=== PATIENT | female | born 1975 | race Caucasian/White ===

== ENCOUNTER 2018-09-21 17:12 | Emergency (ER) | payer SELFPAY ==
--- NOTE | 2018-09-21 18:16 | RAD REPORT ---
EXAM DESCRIPTION: RAD - Chest Pa And Lat (2 Views) - 09/21/2018 6:11 pm CLINICAL HISTORY: Congestion;Cough Chest pain. COMPARISON: Chest Single View dated 01/07/2017; CHEST SINGLE VIEW dated 03/23/2015 FINDINGS: The lungs are clear. The heart is normal in size. No displaced fractures. IMPRESSION: No acute or concerning finding suspected.
--- NOTE | 2018-09-21 18:38 | ER ---
Nurse's Notes [facility] Name: Chrissy Conway Age: 42 yrs Sex: Female : 1975 Arrival Date: 09/21/2018 Time: 17:14 Bed 18 Private MD: Diagnosis: Bronchitis, not specified as acute or chronic Presentation: 09/21 17:16 Presenting complaint: Patient states: i thought it was allergy last 3 weeks ago, then i hj had the cough and last night i could hardly breathe and now my throat hurts; reports fever and chills;. Transition of care:. Resp Distress? No respiratory distress is noted at this time. Onset of symptoms was September 21, 2018. Risk Assessment: Do you want to hurt yourself or someone else? Patient reports no desire to harm self or others. Initial Sepsis Screen: Does the patient meet any 2 criteria? No. Patient's initial sepsis screen is negative. Does the patient have a suspected source of infection? No. Patient's initial sepsis screen is negative. Care prior to arrival: None. 17:16 Method Of Arrival: Ambulatory 17:16 Acuity: PAULINO 4 Triage Assessment: 17:42 General: Appears in no apparent distress. comfortable, Behavior is cooperative, bp appropriate for age, anxious. Pain: Complains of pain in neck. EENT: Reports pain when swallowing. Neuro: Level of Consciousness is awake, alert, obeys commands, Oriented to person, place, time, situation, Appropriate for age. Cardiovascular: No deficits noted. Respiratory: Breath sounds are clear bilaterally. GI: No signs and/or symptoms were reported involving the gastrointestinal system. : No signs and/or symptoms were reported regarding the genitourinary system. Derm: No deficits noted. Musculoskeletal: Circulation, motion, and sensation intact. Range of motion: intact in all extremities. 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 - Social history:: Smoking status: Patient uses tobacco products, unknown amount. - Ebola Screening: : Patient negative for fever greater than or equal to 101.5 degrees Fahrenheit, and additional compatible Ebola Virus Disease symptoms Patient denies exposure to infectious person Patient denies travel to an Ebola-affected area in the 21 days before illness onset No symptoms or risks identified at this time. Screenin:45 Abuse screen: Denies threats or abuse. Denies injuries from another. Nutritional bp screening: No deficits noted. On. Tuberculosis screening: No symptoms or risk factors identified. Fall Risk None identified. Assessment: 17:44 General: SEE TRIAGE NOTE. Cardiovascular: No deficits noted. Cardiovascular: Rhythm is bp sinus rhythm. Cardiovascular: Chest pain is denied. Respiratory: Reports cough that is. Respiratory: Airway is patent Respiratory effort is even, unlabored, Respiratory pattern is regular, symmetrical. 18:21 Reassessment: ALL CURRENT ORDERS COMPLETED, RESULTS PENDING. bp 18:44 Reassessment: D/C ON HOLD FOR NEB TREATMENT. bp 19:10 Reassessment: PT D/C HOME AMBULATORY WITH FAMILY, DX WITH BRONCHITIS. Cardiovascular: bp Rhythm is sinus rhythm. Respiratory: Airway is patent. Vital Signs: 17:18 BP 130 / 85; Pulse 84; Resp 18; Temp 99.2(TE); Pulse Ox 98% on R/A; Weight 68.04 kg; hj Height 5 ft. 4 in. (162.56 cm); Pain 10/10; 18:22 BP 115 / 78; Pulse 74; Resp 16; Pulse Ox 99% ; bp 17:18 Body Mass Index 25.75 (68.04 kg, 162.56 cm) ED Course: 17:14 Patient arrived in ED. mr 17:17 Triage completed. hj 17:19 Arm band placed on left wrist. hj 17:42 Que Aragon, PEE is Primary Nurse. bp 17:44 Ale Leiva FNP-C is PHCP. kb 17:44 Deep Chambers MD is Attending Physician. kb 17:45 Patient has correct armband on for positive identification. Bed in low position. Call bp light in reach. Side rails up X2. 18:10 Chest Pa And Lat (2 Views) XRAY In Process Unspecified. EDMS 18:44 No provider procedures requiring assistance completed. Patient did not have IV access bp during this emergency room visit. Administered Medications: 18:30 Drug: predniSONE 40 mg Route: PO; bp 19:11 Follow up: Response: No adverse reaction bp 18:30 Drug: Albuterol 2.5 mg Route: Inhalation; bp 18:30 Drug: AtroVENT Aerosol 0.5 mg Route: Inhalation; bp Outcome: 18:37 Discharge ordered by . ronn 19:10 Discharged to home ambulatory, with family. bp 19:10 Condition: stable 19:10 Discharge instructions given to patient, Instructed on discharge instructions, follow up and referral plans. medication usage, Demonstrated understanding of instructions, follow-up care, medications, Prescriptions given X 3. 19:12 Patient left the ED. bp Signatures: Dispatcher [employer] EDMS Ale Leiva, ELZBIETA SILVER-Heidy Jimenez mr Prince Wren, RN RN Que Rojas RN RN bp Corrections: (The following items were deleted from the chart) 17:39 17:16 Acuity: PAULINO 3 hj bp 18:33 17:16 Acuity: PAULINO 4 bp hj
--- NOTE | 2018-09-21 18:38 | EDPHYS ---
Physician Documentation [facility] Name: Chrissy Conway Age: 42 yrs Sex: Female : 1975 Arrival Date: 09/21/2018 Time: 17:14 Bed 18 Private MD: ED Physician Deep Chambers HPI: 09/21 18:36 This 42 yrs old Female presents to ER via Ambulatory with complaints of kb Congestion, Back Pain, Fever. 18:36 The patient or guardian reports cough, that is intermittent, described as moderate, kb with no sputum, flu symptoms, low-grade fever, myalgias. Onset: The symptoms/episode began/occurred 3 week(s) ago. Severity of symptoms: At their worst the symptoms were moderate, in the emergency department the symptoms are unchanged. Modifying factors: The symptoms are alleviated by nothing, the symptoms are aggravated by nothing. Associated signs and symptoms: Pertinent positives: fever, rhinorrhea. The patient has not experienced similar symptoms in the past. The patient has not recently seen a physician. 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 - Social history:: Smoking status: Patient uses tobacco products, unknown amount. - Ebola Screening: : Patient negative for fever greater than or equal to 101.5 degrees Fahrenheit, and additional compatible Ebola Virus Disease symptoms Patient denies exposure to infectious person Patient denies travel to an Ebola-affected area in the 21 days before illness onset No symptoms or risks identified at this time. ROS: 18:22 Neck: Negative for injury, pain, and swelling, Cardiovascular: Negative for chest pain, kb palpitations, and edema, Abdomen/GI: Negative for abdominal pain, nausea, vomiting, diarrhea, and constipation, Back: Negative for injury and pain, MS/Extremity: Negative for injury and deformity, Skin: Negative for injury, rash, and discoloration, Neuro: Negative for headache, weakness, numbness, tingling, and seizure. 18:22 Constitutional: Positive for body aches, chills, fever, malaise. 18:22 ENT: Positive for sinus congestion. 18:22 Respiratory: Positive for cough. Exam: 18:34 Constitutional: This is a well developed, well nourished patient who is awake, alert, kb and in no acute distress. Head/Face: Normocephalic, atraumatic. ENT: Nares patent. No nasal discharge, no septal abnormalities noted. Tympanic membranes are normal and external auditory canals are clear. Oropharynx with no redness, swelling, or masses, exudates, or evidence of obstruction, uvula midline. Mucous membranes moist. Neck: Trachea midline, no thyromegaly or masses palpated, and no cervical lymphadenopathy. Supple, full range of motion without nuchal rigidity, or vertebral point tenderness. No Meningismus. Chest/axilla: Normal chest wall appearance and motion. Nontender with no deformity. No lesions are appreciated. Cardiovascular: Regular rate and rhythm with a normal S1 and S2. No gallops, murmurs, or rubs. Normal PMI, no JVD. No pulse deficits. Respiratory: Lungs have equal breath sounds bilaterally, clear to auscultation and percussion. No rales, rhonchi or wheezes noted. No increased work of breathing, no retractions or nasal flaring. Abdomen/GI: Soft, non-tender, with normal bowel sounds. No distension or tympany. No guarding or rebound. No evidence of tenderness throughout. Skin: Warm, dry with normal turgor. Normal color with no rashes, no lesions, and no evidence of cellulitis. MS/ Extremity: Pulses equal, no cyanosis. Neurovascular intact. Full, normal range of motion. Neuro: Awake and alert, GCS 15, oriented to person, place, time, and situation. Cranial nerves II-XII grossly intact. Motor strength 5/5 in all extremities. Sensory grossly intact. Cerebellar exam normal. Normal gait. Vital Signs: 17:18 BP 130 / 85; Pulse 84; Resp 18; Temp 99.2(TE); Pulse Ox 98% on R/A; Weight 68.04 kg; hj Height 5 ft. 4 in. (162.56 cm); Pain 10/10; 18:22 BP 115 / 78; Pulse 74; Resp 16; Pulse Ox 99% ; bp 17:18 Body Mass Index 25.75 (68.04 kg, 162.56 cm) MDM: 17:44 Patient medically screened. kb 18:34 Data reviewed: vital signs, nurses notes. Data interpreted: Pulse oximetry: on room air kb is 99 %. Interpretation: normal. 18:36 Counseling: I had a detailed discussion with the patient and/or guardian regarding: the kb historical points, exam findings, and any diagnostic results supporting the discharge/admit diagnosis, lab results, radiology results, the need for outpatient follow up, a family practitioner, to return to the emergency department if symptoms worsen or persist or if there are any questions or concerns that arise at home. 09/21 17:50 Order name: Flu; Complete Time: 18:35 kb 09/21 17:50 Order name: Strep; Complete Time: 18:35 kb 09/21 17:50 Order name: Chest Pa And Lat (2 Views) XRAY; Complete Time: 18:18 kb 09/21 18:35 Order name: Throat Culture EDMS Administered Medications: 18:30 Drug: predniSONE 40 mg Route: PO; bp 19:11 Follow up: Response: No adverse reaction bp 18:30 Drug: Albuterol 2.5 mg Route: Inhalation; bp 18:30 Drug: AtroVENT Aerosol 0.5 mg Route: Inhalation; bp Disposition: 09/22 09:25 Co-signature as Attending Physician, Deep Chambers MD. gs Disposition: 09/21/18 18:37 Discharged to Home. Impression: Bronchitis, not specified as acute or chronic. - Condition is Stable. - Discharge Instructions: Acute Bronchitis, [id number]. - Prescriptions for Prednisone 20 mg Oral Tablet - take 1 tablet by ORAL route once daily for 5 days; 5 tablet. Zithromax Z- Ranjeet 250 mg Oral Tablet - take 1 tablet by ORAL route as directed for 5 days Day 1 - take two (2) tablets one time. Day 2, 3, 4 , 5 take one (1) tablet once daily.; 6 tablet. Albuterol Sulfate 90 mcg/actuation - inhale 1-2 puff by INHALATION route every 4-6 hours; 1 Inhaler. - Medication Reconciliation Form, Thank You Letter, Antibiotic Education, Prescription Opioid Use, Work release form form. - Follow up: Emergency Department; When: As needed; Reason: Worsening of condition. Follow up: Private Physician; When: 2 - 3 days; Reason: Recheck today's complaints, Continuance of care, Re-evaluation by your physician. Signatures: Dispatcher [employer] EDAL Ale Leiva, WEB SEARCH EVALUATOR-C WEB SEARCH EVALUATOR-Ckb Prince Wren, RN RN hj Deep Chambers MD MD gs Peltier, Brian, RN RN bp Corrections: (The following items were deleted from the chart) 09/21 19:12 18:37 09/21/2018 18:37 Discharged to Home. Impression: Bronchitis, not specified as bp acute or chronic. Condition is Stable. Forms are Medication Reconciliation Form, Thank You Letter, Antibiotic Education, Prescription Opioid Use. Follow up: Emergency Department; When: As needed; Reason: Worsening of condition. Follow up: Private Physician; When: 2 - 3 days; Reason: Recheck today's complaints, Continuance of care, Re-evaluation by your physician. kb
[2018-09-21] MEDS ORDERED: ALBUTEROL 2.5 MG/3 ML NEB SOL ONE (18:41)
[2018-09-21] MEDS ORDERED: predniSONE 20 MG TAB ONE (18:42)
[2018-09-21] MEDS ORDERED: IPRATROPIUM BROM 0.5MG/2.5ML ONE (18:42)
== END 2018-09-21 19:12 | disposition home or self-care (01) ==
LOC: ER 17:12
DX: J40 Bronchitis, not specified as acute or chronic (principal); Z88.6 Allergy status to analgesic agent
CPT/HCPCS: 71046; 87070; 87081; 87804; 99284; J7512

== ENCOUNTER 2019-12-15 13:35 | Emergency (ER) | payer SELFPAY, OTHER ==
--- NOTE | 2019-12-15 15:00 | ER ---
Nurse's Notes [facility] Name: Chrissy Conway Age: 44 yrs Sex: Female : 1975 Arrival Date: 12/15/2019 Time: 13:36 Bed 25 Private MD: Diagnosis: Cough;Coronavirus infection, unspecified Presentation: 12/14 13:57 Chief complaint: Patient states: "I woke up this morning around 3am with some pressure aa5 on my chest and I felt like I couldn't catch my breath". Pt reports slight cough and reports loss of taste today. 13:57 Coronavirus screen: Client denies travel out of the [place] in the last 14 days. cough aa5 unrelated to allergies, loss of taste or smell, Client presents with at least one sign or symptom that may indicate coronavirus-19. Standard/surgical mask placed on the client. Provider contacted for isolation considerations. 13:57 Method Of Arrival: Ambulatory aa5 13:57 Ebola Screen: Patient negative for fever greater than or equal to 101.5 degrees aa5 Fahrenheit, and additional compatible Ebola Virus Disease symptoms. Initial Sepsis Screen: Does the patient meet any 2 criteria? No. Patient's initial sepsis screen is negative. Does the patient have a suspected source of infection? No. Patient's initial sepsis screen is negative. Risk Assessment: Do you want to hurt yourself or someone else? Patient reports no desire to harm self or others. 13:57 Onset of symptoms was December 2019. aa5 13:57 Acuity: PAULINO 4 aa5 Triage Assessment: 14:01 General: Appears in no apparent distress. comfortable, Behavior is calm, cooperative. ls4 Respiratory: No deficits noted. Reports cough that is dry, Breath sounds are clear bilaterally. Onset: The symptoms/episode began/occurred at an unknown time. the patient has mild shortness of breath. Historical: - Allergies: 14:00 Codeine; aa5 14:00 PENICILLINS; aa5 - PMHx: 14:00 None; aa5 - PSHx: 14:00 Tubal ligation; aa5 - Immunization history:: Adult Immunizations unknown. - Social history:: Smoking status: Patient reports the use of cigarette tobacco products. - Family history:: not pertinent. - Hospitalizations: : No recent hospitalization is reported. Screenin:03 Abuse screen: Denies threats or abuse. Denies injuries from another. ls4 14:03 Nutritional screening: No deficits noted. Tuberculosis screening: No symptoms or risk ls4 factors identified. Fall Risk None identified. Assessment: 14:02 General: Appears in no apparent distress. comfortable, Behavior is calm, cooperative. ls4 Pain: Denies pain. Neuro: No deficits noted. Cardiovascular: No deficits noted. Rhythm is regular. Respiratory: No deficits noted. Airway is patent Respiratory effort is even, unlabored, Breath sounds are clear bilaterally. GI: No deficits noted. No signs and/or symptoms were reported involving the gastrointestinal system. : No deficits noted. No signs and/or symptoms were reported regarding the genitourinary system. Derm: No deficits noted. No signs and/or symptoms reported regarding the dermatologic system. Musculoskeletal: No deficits noted. No signs and/or symptoms reported regarding the musculoskeletal system. 15:10 Reassessment: Patient is alert, oriented x 3, equal unlabored respirations, skin aa5 warm/dry/pink. Vital Signs: 13:57 BP 168 / 106; Pulse 68; Resp 18 S; Temp 99.1(O); Pulse Ox 99% on R/A; aa5 15:10 BP 158 / 88; Pulse 70; Resp 16 S; Pulse Ox 99% on R/A; aa5 ED Course: 13:36 Patient arrived in ED. ag5 13:57 Ashanti Nixon, RN is Primary Nurse. ls4 13:57 Arm band placed on. aa5 13:58 Lawrence Gomez MD is Attending Physician. rn 14:03 Patient has correct armband on for positive identification. Bed in low position. Call ls4 light in reach. Side rails up X 1. Pulse ox on. NIBP on. Verbal reassurance given. 14:03 No provider procedures requiring assistance completed. Patient did not have IV access ls4 during this emergency room visit. Patient maintains SpO2 saturation greater than 95% on room air. 14:17 Triage completed. aa5 Administered Medications: No medications were administered Outcome: 15:00 Discharge ordered by . rn 15:10 Discharged to home ambulatory. aa5 15:10 Condition: good aa5 15:10 Discharge instructions given to patient, Instructed on discharge instructions, follow up and referral plans. Need to self-quarantine for 14 days and notified of wait time for COVID-19 results. Demonstrated understanding of instructions, follow-up care. 15:13 Patient left the ED. aa5 Signatures: Lawrence Gomez MD MD rn Calderon, Audri RN RN aa5 Ashanti Nixon RN RN ls4 Valorie Ely 5
--- NOTE | 2019-12-15 15:00 | EDPHYS ---
Physician Documentation [facility] Name: Chrissy Conway Age: 44 yrs Sex: Female : 1975 Arrival Date: 12/15/2019 Time: 13:36 Bed 25 Private MD: ED Physician Lawrence Gomez HPI: 12/14 14:53 This 44 yrs old Female presents to ER via Ambulatory with complaints of rn Breathing Difficulty, Loss Of Taste. 14:53 The patient or guardian reports cough. rn 14:53 Onset: The symptoms/episode began/occurred this morning. Severity of symptoms: At their rn worst the symptoms were mild, in the emergency department the symptoms are unchanged. Modifying factors: The symptoms are alleviated by nothing, the symptoms are aggravated by nothing. The patient has not experienced similar symptoms in the past. Reports multiple family members with COVID+ tests, she smokes, reports this AM began with mild cough and intermittent sob, not SOB right now, doesn't feel very ill, wants to get tested. . Historical: - Allergies: 14:00 Codeine; aa5 14:00 PENICILLINS; aa5 - PMHx: 14:00 None; aa5 - PSHx: 14:00 Tubal ligation; aa5 - Immunization history:: Adult Immunizations unknown. - Social history:: Smoking status: Patient reports the use of cigarette tobacco products. - Family history:: not pertinent. - Hospitalizations: : No recent hospitalization is reported. ROS: 14:53 Constitutional: + fever Eyes: Negative for injury, pain, redness, and discharge, ENT: rn Negative for injury, pain, and discharge, Neck: Negative for injury, pain, and swelling, Cardiovascular: Negative for chest pain, palpitations, and edema, Respiratory: + cough and mild sob Abdomen/GI: Negative for abdominal pain, nausea, vomiting, diarrhea, and constipation, MS/Extremity: Negative for injury and deformity, Skin: Negative for injury, rash, and discoloration, Neuro: Negative for headache, weakness, numbness, tingling, and seizure. Exam: 14:53 Constitutional: This is a well developed, well nourished patient who is awake, alert, rn and in no acute distress. Head/Face: Normocephalic, atraumatic. Eyes: Pupils equal round and reactive to light, extra-ocular motions intact. Lids and lashes normal. Conjunctiva and sclera are non-icteric and not injected. Cornea within normal limits. Periorbital areas with no swelling, redness, or edema. Cardiovascular: Regular rate and rhythm. No pulse deficits. Respiratory: Speaking full sentences. No increased work of breathing, no retractions or nasal flaring. Abdomen/GI: soft, non-tender MS/ Extremity: Pulses equal, no cyanosis. Neurovascular intact. Full, normal range of motion. Equal circumference. Neuro: Awake and alert, GCS 15, oriented to person, place, time, and situation. Cranial nerves II-XII grossly intact. Motor strength 5/5 in all extremities. Sensory grossly intact. Cerebellar exam normal. Normal gait. Vital Signs: 13:57 BP 168 / 106; Pulse 68; Resp 18 S; Temp 99.1(O); Pulse Ox 99% on R/A; aa5 15:10 BP 158 / 88; Pulse 70; Resp 16 S; Pulse Ox 99% on R/A; aa5 MDM: 13:58 Patient medically screened. rn 14:53 Differential Diagnosis: Upper Respiratory Infection Viral Syndrome Pneumonia Other rn [id number]. Data reviewed: vital signs, nurses notes, radiologic studies, plain films, and as a result, I will discharge patient. Test interpretation: by ED physician or midlevel provider: plain radiologic studies, CXR neg for pneumonia. Counseling: I had a detailed discussion with the patient and/or guardian regarding: the historical points, exam findings, and any diagnostic results supporting the discharge/admit diagnosis, radiology results, the need for outpatient follow up, to return to the emergency department if symptoms worsen or persist or if there are any questions or concerns that arise at home. Special discussion: I discussed with the patient/guardian in detail that at this point there is no indication for admission to the hospital. It is understood, however, that if the symptoms persist or worsen the patient needs to return immediately for re-evaluation. 14:53 ED course: Pt reports a loss of taste. Told her ot assume she has COVID given multiple rn exposures and symptoms, COVID test sent, CXR clear, return precautions given and told to quarantine.. 12/14 14:13 Order name: COVID-19 rn 12/14 14:13 Order name: XRAY Chest (1 view) rn Administered Medications: No medications were administered Disposition: 12/15/19 15:00 Discharged to Home. Impression: Cough, Coronavirus infection, unspecified. - Condition is Stable. - Discharge Instructions: Cough, Adult, COVID-19. - Medication Reconciliation Form, Thank You Letter, Antibiotic Education, Prescription Opioid Use, Work release form form. - Follow up: Private Physician; When: As needed; Reason: Recheck today's complaints, Re-evaluation by your physician. - Problem is new. - Symptoms are unchanged. Signatures: Dispatcher [employer] EDMS Lawrence Gomez MD MD rn Calderon, Audri RN RN aa5 Corrections: (The following items were deleted from the chart) 15:13 15:00 12/15/2019 15:00 Discharged to Home. Impression: Cough; Coronavirus infection, aa5 unspecified. Condition is Stable. Forms are Medication Reconciliation Form, Thank You Letter, Antibiotic Education, Prescription Opioid Use. Follow up: Private Physician; When: As needed; Reason: Recheck today's complaints, Re-evaluation by your physician. Problem is new. Symptoms are unchanged. rn
[2019-12-15 15:17] VITALS: BP 168/106; TEMP 99.1; O2SAT 99
--- NOTE | 2019-12-15 15:25 | RAD REPORT ---
EXAM DESCRIPTION: RAD - Chest Single View - 12/15/2019 3:15 pm CLINICAL HISTORY: Cough;Fever, chest pain and pressure COMPARISON: Two view chest September 2018 TECHNIQUE: AP portable chest image was obtained 12/15/2019 3:15 pm . FINDINGS: Lungs are clear. Heart and vasculature are normal. No measurable pleural effusion and no p neumothorax. No acute bony abnormality seen. No acute aortic findings suspected. IMPRESSION: No acute cardiopulmonary process. No significant change from comparison.
== END 2019-12-15 15:13 | disposition home or self-care (01) ==
LOC: ER 13:35
DX: U07.1 COVID-19 (principal); F17.210 Nicotine dependence, cigarettes, uncomplicated; Z88.0 Allergy status to penicillin; Z88.5 Allergy status to narcotic agent
CPT/HCPCS: 71045; 99284; U0002

== ENCOUNTER 2022-12-09 15:22 | Emergency (ER) | payer SELFPAY ==
--- OUTSIDE RECORDS SUMMARY | 2022-12-09 15:26 | XMS REPORT | Continuity of Care Document ---
:1975 Author Organization [facility] t Address [address] [place] [id number] Care Team Providers Name Role Phone Unavailable Unavailable Unavailable Problems This patient has no known problems. Allergies, Adverse Reactions, Alerts This patient has no known allergies or adverse reactions. Medications This patient has no known medications. Procedures This patient has no known procedures. Encounters Start End Encounter Admission Attending Care Care Encounter Source Date/Time Date/Time Type Type Clinicians Facility Department ID 2022-12-07 2022-12-07 Outpatient [facility] [id number] [facility] 14:02:49 14:02:49 [id number] [address] [facility] Results This patient has no known results.
[2022-12-09] MEDS ORDERED: HYDROCODONE/APAP 5/325 MG TAB ONE (16:00)
[2022-12-09] MEDS ORDERED: methocarbamoL 500 MG TAB ONE (16:00)
[2022-12-09] MEDS ORDERED: ONDANSETRON 4 MG (ODT) TAB ONE (16:01)
[2022-12-09 16:11] LABS: Specific Gravity > 1.030 (1.005-1.030)
[2022-12-09 16:20] LABS: Specific Gravity > 1.030 (1.005-1.030); Urine Bacteria 20-50 /HPF (<20); Urine Bilirubin NEGATIVE (Negative); Urine Blood Trace (Negative); Urine Clarity Extremely Turbid (Clear); Urine Color Light-Yellow (Yellow); Urine Glucose 4+ (Over) (Negative); Urine Mucus Slight /HPF (None Seen); Urine Protein TRACE (Negative); Urine Urobilinogen Normal (Normal); Urine WBC Clump Rare /HPF (None Seen); Urine pH 5.5 (5.0-7.0)
[2022-12-09 17:51] LABS: Absolute Lymphocytes (CBC) 1.3 K/uL (0.7-4.9); Hematocrit 42.9 % (36.0-45.0); Lymphocytes % 10.6 % (15.3-44.8); MCV 90.3 fL (80-100); MPV 8.6 fL (7.6-11.3); RBC Red Blood Cell Count 4.75 M/uL (3.86-4.86)
[2022-12-09 18:08] LABS: Albumin 3.5 g/dL (3.4-5.0); Bilirubin Total 1.2 mg/dL (0.2-1.0); Potassium 4.2 mEq/L (3.5-5.1); Protein, Total 8.4 g/dL (6.4-8.2)
--- NOTE | 2022-12-09 18:22 | EDPHYS ---
Physician Documentation [facility] Name: Chrissy Conway Age: 47 yrs Sex: Female : 1975 Arrival Date: 12/09/2022 Time: 15:22 Bed 18 Private MD: ED Physician Tabitha Douglass Historical: - Allergies: 12/09 15:37 PENICILLINS; ll1 15:37 Codeine; ll1 - PMHx: 15:37 Anxiety; Depression; ll1 - PSHx: 15:37 tubal ; ll1 - Immunization history:: Client reports receiving the 2nd dose of the Covid vaccine. - Social history:: Smoking status: Patient reports the use of cigarette tobacco products, smokes one-half pack cigarettes per day, Reported history of juuling and/or vaping. Vital Signs: 15:35 BP 126 / 92; Pulse 105; Resp 18; Temp 97.9; Pulse Ox 100% ; Weight 87.09 kg; Height 5 ll1 ft. 5 in. ; Pain 10/10; 18:18 BP 106 / 83; Pulse 72; Resp 14; Pulse Ox 98% on R/A; me1 19:05 BP 112 / 75; Pulse 63; Resp 18 S; Pulse Ox 98% on R/A; ha1 20:00 BP 115 / 78; Pulse 68; Resp 18 S; Pulse Ox 98% on R/A; ha1 21:00 BP 106 / 68; Pulse 66; Resp 18 S; Pulse Ox 99% on R/A; ha1 15:35 Body Mass Index 31.95 (87.09 kg, 165.1 cm) ll1 15:35 Pain Scale: Adult ll1 MDM: 16:09 Patient medically screened. 3 12/09 15:46 Order name: CBC with Diff; Complete Time: 18:11 cp3 12/09 18:11 Interpretation: Abnormal. cp3 12/09 15:46 Order name: CMP; Complete Time: 18:15 cp3 12/09 15:46 Order name: Lipase; Complete Time: 18:15 cp3 12/09 15:46 Order name: Test, Urine; Complete Time: 16:22 cp3 12/09 15:46 Order name: Urinalysis w/ reflexes; Complete Time: 17:51 cp3 12/09 16:25 Order name: Urine Culture EDMS 12/09 18:16 Order name: Glucose: 1 hour after insulin. ok to dc if blood sugar improved cp3 12/09 19:54 Order name: Glucose, Ancillary Testing; Complete Time: 19:56 EDMS 12/09 21:28 Order name: Glucose, Ancillary Testing EDMS 12/09 17:36 Order name: IV Saline Lock; Complete Time: 17:36 ll1 Administered Medications: 15:52 Drug: Ondansetron PO 4 mg Route: PO; ll1 17:35 Follow up: Response: No adverse reaction ll1 15:53 Drug: HYDROcodone-acetaminophen PO 5 mg-325 mg 2 tabs {Note: RASS 0, pain 10/10.} ll1 Route: PO; 17:35 Follow up: Response: No adverse reaction ll1 15:54 Drug: Methocarbamol PO 500 mg Route: PO; ll1 17:35 Follow up: Response: No adverse reaction; Pain is decreased; RASS: Alert and Calm (0) ll1 18:29 Drug: NS IV 0.45 % 1000 ml Route: IV; Rate: 125 bolus; Site: right antecubital; me1 18:29 Drug: LevaQUIN IVPB 750 mg Route: IVPB; Site: right antecubital; me1 18:42 Drug: Insulin Regular Human IVP 5 units {Co-Signature: ph (Elsa Jerry RN).} Route: me1 IVP; Site: right antecubital; 20:00 Follow up: Response: No adverse reaction; Blood sugar is unchanged ha1 20:00 Drug: NS 0.9% IV 1000 ml Route: IV; Rate: 1000 ml; Site: right forearm; ha1 21:34 Follow up: Response: No adverse reaction; IV Status: Completed infusion; IV Intake: ha1 1000ml 20:04 Drug: Insulin Regular Human Sub-Q 10 units {Co-Signature: nj1 (Sharee Peoples RN).} Route: ha1 Sub-Q; Site: abdomen; 20:35 Follow up: Response: No adverse reaction ha1 Disposition Summary: 12/09/22 18:22 Discharge Ordered Location: Home cp3 Problem: new cp3 Symptoms: have improved cp3 Condition: Stable cp3 Diagnosis - Pyelonephritis acute cp3 - Diabetes mellitus due to underlying condition with hyperglycemia cp3 - Other abdominal pain - right flank pain cp3 - Dehydration cp3 Followup: cp3 - With: Kal Tian MD - When: - Reason: If symptoms return Discharge Instructions: - Discharge Summary Sheet cp3 - Hyperglycemia cp3 - Pyelonephritis, Adult cp3 Forms: - Medication Reconciliation Form cp3 - Thank You Letter cp3 - Antibiotic Education cp3 - Prescription Opioid Use cp3 - Patient Portal Instructions cp3 - Work release form ha1 Prescriptions: - Ibuprofen 600 mg Oral Tablet - take 1 tablet by ORAL route every 6 hours As needed take with food; 30 tablet; cp3 Refills: 0, Product Selection Permitted - Cyclobenzaprine 5 mg Oral Tablet - take 1 tablet by ORAL route 3 times per day As needed; 15 tablet; Refills: 0, cp3 Product Selection Permitted - levofloxacin 500 mg Oral Tablet - take 1 tablet by ORAL route once daily for 7 days; 7 tablet; Refills: 0, cp3 Product Selection Permitted Signatures: Dispatcher [employer] Tabitha Reeder MD MD 3 Lawrence Gomez MD MD rn Melina Mackey RN RN 1 Charity Perez RN RN 1 Denise Merritt RN RN me1 Elsa Jerry RN Sharee Peoples RN nj1 Corrections: (The following items were deleted from the chart) 15:47 15:46 IV Saline Lock ordered. cp3 cp3 15:47 15:46 Labs collected and sent ordered. cp3 cp3 18:12 18:11 Abnormal. cp3 cp3 18:12 18:11 OrderId: [id number] PrecursorText: InterpretationText: cp3 cp3
--- NOTE | 2022-12-09 18:22 | ER ---
Nurse's Notes [facility] Name: Chrissy Conway Age: 47 yrs Sex: Female : 1975 Arrival Date: 12/09/2022 Time: 15:22 Bed 18 Private MD: Diagnosis: Pyelonephritis acute;Diabetes mellitus due to underlying condition with hyperglycemia;Other abdominal pain-right flank pain;Dehydration Presentation: 12/09 15:35 Chief complaint: Patient states: R flank pain for 10 days. R arm/hand feels tingly ll1 off/on for 10 days. N/V started today. [place] weak when walking to work this morning. Coronavirus screen: Vaccine status: Patient reports being unvaccinated. Client denies travel out of the [place] in the last 14 days. At this time, the client does not indicate any symptoms associated with coronavirus-19. Ebola Screen: Patient denies travel to an Ebola-affected area in the 21 days before illness onset. Initial Sepsis Screen: Does the patient meet any 2 criteria? No. Patient's initial sepsis screen is negative. Does the patient have a suspected source of infection? Yes: Acute abdominal pain. Risk Assessment: Do you want to hurt yourself or someone else? Patient reports no desire to harm self or others. Onset of symptoms was October 30, 2022. 15:35 Method Of Arrival: Ambulatory ll1 15:35 Acuity: PAULINO 3 ll1 Triage Assessment: 15:37 General: Appears uncomfortable, Behavior is calm, cooperative, appropriate for age. ll1 Pain: Complains of pain in R flank. GI: Reports lower abdominal pain. Musculoskeletal: Reports numbness in right arm. Historical: - Allergies: 15:37 PENICILLINS; ll1 15:37 Codeine; ll1 - PMHx: 15:37 Anxiety; Depression; ll1 - PSHx: 15:37 tubal ; ll1 - Immunization history:: Client reports receiving the 2nd dose of the Covid vaccine. - Social history:: Smoking status: Patient reports the use of cigarette tobacco products, smokes one-half pack cigarettes per day, Reported history of juuling and/or vaping. Screenin:21 [facility] ED Fall Risk Assessment (Adult) Score/Fall Risk Level 0 - 2 = Low Risk. Abuse me1 screen: Denies threats or abuse. Nutritional screening: No deficits noted. Tuberculosis screening: No symptoms or risk factors identified. Assessment: 17:36 Reassessment: No changes from previously documented assessment. Patient and/or family ll1 updated on plan of care and expected duration. Pain level reassessed. Patient is alert, oriented x 3, equal unlabored respirations, skin warm/dry/pink. 18:22 GI:. ha1 19:05 General: Appears comfortable, Behavior is calm, cooperative. Pain: Denies pain. Neuro: ha1 Level of Consciousness is awake, alert, obeys commands, Oriented to person, place, time, situation. Cardiovascular: Patient's skin is warm and dry. Respiratory: Airway is patent Respiratory effort is even, unlabored, Respiratory pattern is regular, symmetrical. 19:05 GI: Abdomen is round non-distended, Bowel sounds present X 4 quads. Abd is soft and non ha1 tender X 4 quads. : Reports urinary frequency. Musculoskeletal: Circulation, motion, and sensation intact. Range of motion: intact in all extremities. 19:05 Reassessment: RAQUEL RN states " pt. needs to be discharged when glucose level gets under ha1 400s.". 20:05 Reassessment: Patient and/or family updated on plan of care and expected duration. Pain ha1 level reassessed. Patient is alert, oriented x 3, equal unlabored respirations, skin warm/dry/pink. notified Dr. Gomez of glucose level. 21:00 Reassessment: Patient and/or family updated on plan of care and expected duration. Pain ha1 level reassessed. Patient is alert, oriented x 3, equal unlabored respirations, skin warm/dry/pink. 21:35 Reassessment: notified Dr. Fenton of last glucose results. ha1 Vital Signs: 15:35 BP 126 / 92; Pulse 105; Resp 18; Temp 97.9; Pulse Ox 100% ; Weight 87.09 kg; Height 5 ll1 ft. 5 in. ; Pain 10/10; 18:18 BP 106 / 83; Pulse 72; Resp 14; Pulse Ox 98% on R/A; me1 19:05 BP 112 / 75; Pulse 63; Resp 18 S; Pulse Ox 98% on R/A; ha1 20:00 BP 115 / 78; Pulse 68; Resp 18 S; Pulse Ox 98% on R/A; ha1 21:00 BP 106 / 68; Pulse 66; Resp 18 S; Pulse Ox 99% on R/A; ha1 15:35 Body Mass Index 31.95 (87.09 kg, 165.1 cm) 1 15:35 Pain Scale: Adult [facility] ED Course: 15:24 Patient arrived in ED. mr 15:25 Tabitha Douglass MD is Attending Physician. cp3 15:37 Triage completed. 1 15:38 Arm band placed on. ll1 17:36 Lipase Sent. ll1 17:36 CMP Sent. ll1 17:36 CBC with Diff Sent. 1 17:36 Inserted saline lock: 22 gauge in right antecubital area, using aseptic technique. 1 Blood collected. 18:14 Patient placed in an exam room, on a stretcher. 1 18:20 Kal Tian MD is Referral Physician. cp3 18:21 Patient has correct armband on for positive identification. Bed in low position. Call sd1 light in reach. Side rails up X 1. Provided Education on: on POC. Verbalized understanding. . 18:21 No provider procedures requiring assistance completed. IV is patent, is intact. me1 19:05 Report received from PEE GARCÍA. ha1 21:27 Charity Perez RN is Primary Nurse. 1 21:35 IV discontinued, intact, bleeding controlled, No redness/swelling at site. Pressure ha1 dressing applied. Administered Medications: 15:52 Drug: Ondansetron PO 4 mg Route: PO; 1 17:35 Follow up: Response: No adverse reaction 1 15:53 Drug: HYDROcodone-acetaminophen PO 5 mg-325 mg 2 tabs {Note: RASS 0, pain 10/10.} ll1 Route: PO; 17:35 Follow up: Response: No adverse reaction 1 15:54 Drug: Methocarbamol PO 500 mg Route: PO; 1 17:35 Follow up: Response: No adverse reaction; Pain is decreased; RASS: Alert and Calm (0) 1 18:29 Drug: NS IV 0.45 % 1000 ml Route: IV; Rate: 125 bolus; Site: right antecubital; me1 18:29 Drug: LevaQUIN IVPB 750 mg Route: IVPB; Site: right antecubital; me1 18:42 Drug: Insulin Regular Human IVP 5 units {Co-Signature: ph (Elsa Jerry RN).} Route: me1 IVP; Site: right antecubital; 20:00 Follow up: Response: No adverse reaction; Blood sugar is unchanged ha1 20:00 Drug: NS 0.9% IV 1000 ml Route: IV; Rate: 1000 ml; Site: right forearm; ha1 21:34 Follow up: Response: No adverse reaction; IV Status: Completed infusion; IV Intake: ha1 1000ml 20:04 Drug: Insulin Regular Human Sub-Q 10 units {Co-Signature: nj1 (Sharee Peoples RN).} Route: ha1 Sub-Q; Site: abdomen; 20:35 Follow up: Response: No adverse reaction ha1 Medication: 21:35 VIS not applicable for this client. ha1 Intake: 21:34 IV: 1000ml; Total: 1000ml. ha1 Outcome: 18:22 Discharge ordered by MD. cp3 21:35 Discharged to home ambulatory, with family. ha1 21:35 Condition: stable 21:35 Discharge instructions given to patient, Instructed on discharge instructions, follow up and referral plans. medication usage, Demonstrated understanding of instructions, follow-up care, medications, Prescriptions given X 3. 21:36 Patient left the ED. ha1 Addendum: 12/12/2022 07:09 Addendum: Culture Results: Positive urine culture. No further action required. Bacteria e b sensitive to prescribed antibiotic. Signatures: Tabitha Douglass MD MD 3 LlanosHeidy carpioInocencia Lynsay, RN RN [facility] Charity Perez RN RN 1 Denise Merritt RN RN sd1 Elsa Jerry RN ph Sharee Peoples RN nj1 Corrections: (The following items were deleted from the chart) 12/09 21:29 18:22 GI: me1 ha1
[2022-12-09] MEDS ORDERED: NACHLORIDE 0.45% 1,000 ML IV ONE (18:38)
[2022-12-09] MEDS ORDERED: Levofloxacin 750mg IV 750 MG/150 ML BAG IV ONE (18:38)
[2022-12-09] MEDS ORDERED: INSULIN -REGULAR HUMAN 50 UNIT/0.5 ML ML ONE ×2 (18:49→20:09)
[2022-12-09] MEDS ORDERED: NA CHLORIDE 0.9% 1,000 ML ONE (20:09)
[2022-12-09 21:51] VITALS: TEMP 97.9
[2022-12-09 21:58] VITALS: BP 106/68; O2SAT 99
== END 2022-12-09 21:36 | disposition home or self-care (01) ==
LOC: ER 15:22
DX: N10 Acute pyelonephritis (principal); E86.0 Dehydration; E11.65 Type 2 diabetes mellitus with hyperglycemia
CPT/HCPCS: 36415; 80053; 81001; 81025; 82947; 83690; 85025; 87077; 87086; 87088; 87186; 96361; 96372; 96374; 96375; 99284; J1815; J7030; Q0162

== ENCOUNTER 2024-02-23 13:51 | Emergency (ER) | payer SELFPAY ==
--- OUTSIDE RECORDS SUMMARY | 2024-02-23 13:54 | XMS REPORT | Continuity of Care Document ---
Author Name Unknown Address [address] [place], [place] [address]ect Address [address] [place] [address] [address] [place] [address] Care Team Providers Care Back Tacker Name Role Phone Unavailable Unavailable Unavailable Encounters Start Date/Time End Date/Time Encounter Type Admission Type Attending Clinicians Care Facility Care Department Encounter ID Source 2022-12-07 14:02:49 2022-12-07 14:02:49 Outpatient [facility] [id number]
--- NOTE | 2024-02-23 14:38 | RAD REPORT ---
EXAMINATION: ONE VIEW CHEST XR CLINICAL INDICATION: CHEST PAIN TECHNIQUE: Frontal chest projection is submitted. Examination is limited by patient positioning and t echnique. COMPARISON: 12/15/2019 FINDINGS: The lungs are well inflated and clear. The heart is normal in size. No displaced fractures identified . IMPRESSION: No acute intrathoracic abnormalities.
[2024-02-23 15:52] LABS: Absolute Lymphocytes (CBC) 0.6 K/uL (0.7-4.9); Absolute Monocytes 0.7 K/uL (0.1-1.3); Basophils % 0.5 % (0-1.3); Eosinophils % 0.1 % (0-4.4); Hematocrit 41.2 % (36.0-45.0); Hemoglobin 14.3 g/dL (12.0-15.0); Lymphocytes % 11.6 % (15.3-44.8); MCH 31.5 pg (27.0-35.0); MCHC 34.8 g/dL (32.0-36.0); MCV 90.8 fL (80-100); MPV 8.5 fL (7.6-11.3); Monocytes % 12.7 % (3.3-12.3); Neutrophils % 75.1 % (41.7-73.7); Nucleated Red Blood Cells % 0.1 % (0-0); Platelets 159 thou/uL (152-406); RBC Red Blood Cell Count 4.54 M/uL (3.86-4.86); Red Cell Distribution Width 12.6 % (12.1-15.2)
[2024-02-23 16:09] LABS: Albumin 2.9 g/dL (3.4-5.0); Albumin/Globulin Ratio 0.6 (1.1-1.8); Anion Gap 11.1 mEq/L (5.0-15.0); Bilirubin Direct 0.2 mg/dL (0-0.2); Bilirubin Indirect, Calculated 0.6 mg/dL (0.2-0.8); Bilirubin Total 0.8 mg/dL (0.2-1.0); Globulin 4.6 g/dL (2.3-3.5); Potassium 3.1 mEq/L (3.5-5.1); Protein, Total 7.5 g/dL (6.4-8.2)
[2024-02-23 16:11] LABS: Troponin High Sensitivity 7.9 pg/mL (<58.9)
[2024-02-23] MEDS ORDERED: ASPIRIN 81 MG CHEWABLE TABLET ONE (16:26)
[2024-02-23] MEDS ORDERED: POTASSIUM 25 MEQ EFFERV TAB ONE (16:26)
[2024-02-23] MEDS ORDERED: INSULIN REGULAR (HUMAN) 100 UNIT/ML ONE (16:26)
[2024-02-23] MEDS ORDERED: NA CHLORIDE 0.9% 2,000 ML ONE (16:27)
--- NOTE | 2024-02-23 18:33 | EDPHYS ---
Physician Documentation [facility] Name: Chrissy Conway Age: 48 yrs Sex: Female : 1975 Arrival Date: 02/23/2024 Time: 13:51 Bed 2 Private MD: ED Physician Vijay Muñoz HPI: 02/22 16:40 This 48 yrs old Female presents to ER via Ambulatory with complaints of Chest Pain. rt 16:40 Patient presents to the ED with chest pain, worse with exertion since yesterday. rt Patient describes as pressure, is nonradiating. Has no associated symptoms. Symptoms are moderate in severity, no other aggravating or alleviating factors.. [employer]ER: 18:00 unknown cm10 Historical: - Allergies: 16:45 Codeine; cm10 16:45 PENICILLINS; cm10 - PMHx: 16:45 Anxiety; Depression; Diabetes mellitus; cm10 - PSHx: 16:45 tubal ; cm10 - Immunization history:: Adult Immunizations up to date. - Infectious Disease History:: Denies. - Family history:: not pertinent. - Social history:: Smoking status: Patient denies any tobacco usage or history of. ROS: 16:40 Constitutional: Negative for fever, chills, and weight loss, Respiratory: Negative for rt shortness of breath, cough, wheezing, and pleuritic chest pain, Abdomen/GI: Negative for abdominal pain, nausea, vomiting, diarrhea, and constipation, MS/Extremity: Negative for injury and deformity, Skin: Negative for injury, rash, and discoloration, Neuro: Negative for headache, weakness, numbness, tingling, and seizure, 16:40 Cardiovascular: Positive for chest pain, Negative for edema, Exam: 16:52 Constitutional: This is a well developed, well nourished patient who is awake, alert, rt and in no acute distress. Chest/axilla: Normal chest wall appearance and motion. Nontender with no deformity. No lesions are appreciated. Cardiovascular: Regular rate and rhythm with a normal S1 and S2. No gallops, murmurs, or rubs. Normal PMI, no JVD. No pulse deficits. Respiratory: Lungs have equal breath sounds bilaterally, clear to auscultation and percussion. No rales, rhonchi or wheezes noted. No increased work of breathing, no retractions or nasal flaring. Abdomen/GI: Soft, non-tender, with normal bowel sounds. No distension or tympany. No guarding or rebound. No evidence of tenderness throughout. Skin: Warm, dry with normal turgor. Normal color with no rashes, no lesions, and no evidence of cellulitis. MS/ Extremity: Pulses equal, no cyanosis. Neurovascular intact. Full, normal range of motion. Neuro: Awake and alert, GCS 15, oriented to person, place, time, and situation. Cranial nerves II-XII grossly intact. Motor strength 5/5 in all extremities. Sensory grossly intact. Cerebellar exam normal. Normal gait. 16:52 ECG was reviewed by the Attending Physician. Vital Signs: 13:59 BP 126 / 83; Pulse 82; Resp 18; Temp 97.8; Pulse Ox 100% on R/A; Weight 79.38 kg; ph Height 5 ft. 5 in. ; 17:54 BP 121 / 85; Pulse 70; Resp 16; Pulse Ox 99% on R/A; mb9 18:00 BP 113 / 80; Pulse 70; Resp 14; Pulse Ox 100% ; cm10 13:59 Body Mass Index 29.12 (79.38 kg, 165.1 cm) ph MDM: 14:00 Medical Screening Exam initiated rt 18:36 Differential diagnosis: ACS, hyperglycemia, nonspecific chest pain, pneumonia. HEART rt Score: History: Slightly Suspicious (0), ECG: Normal (0), Age: > 45 and < 65 years (1), Risk Factors: 1 or 2 risk factors (1), Troponin: < or = 1 x Normal Limit (0), Total Score = 2. Data reviewed: vital signs, nurses notes, lab test result(s), EKG, radiologic studies. Consideration of Admission/Observation Escalation of care including admission/observation considered. Low heart score, 2 negative troponins, glucose significant improving with IV fluids, insulin, no signs of endorgan dysfunction, will represcribe patient medications, does not need to be admitted to the hospital at this time, return precautions discussed.. I considered the following discharge prescriptions or medication management in the emergency department Medications were administered in the Emergency Department. See MAR. Independent interpretation of the following test(s) in the Emergency Department X-Ray: My interpretation is No infiltrate seen on interpretation of x-ray images. Care significantly affected by the following chronic conditions: Diabetes. Counseling: I had a detailed discussion with the patient and/or guardian regarding the historical points, exam findings, and any diagnostic results supporting the discharge/admit diagnosis, lab results, radiology results, the need for outpatient follow up, to return to the emergency department if symptoms worsen or persist or if there are any questions or concerns that arise at home. Response to treatment: the patient's symptoms have markedly improved after treatment. 02/22 14:00 Order name: Basic Metabolic Panel; Complete Time: 16:13 rt 02/22 14:00 Order name: CBC with Diff; Complete Time: 16:11 rt 02/22 14:00 Order name: LFT's; Complete Time: 16:13 rt 02/22 14:00 Order name: Troponin HS; Complete Time: 16:13 rt 02/22 16:46 Order name: Glucose, Ancillary Testing; Complete Time: 16:51 EDMS 02/22 16:52 Order name: Troponin High Sensitivity; Complete Time: 18:27 rt 02/22 17:52 Order name: Glucose; Complete Time: 18:27 cm10 02/22 14:00 Order name: XRAY Chest (1 view); Complete Time: 14:58 rt 02/22 14:01 Order name: Cardiac monitoring; Complete Time: 16:51 rt 02/22 14:01 Order name: EKG - Nurse/Tech; Complete Time: 16:28 rt 02/22 14:01 Order name: IV Saline Lock; Complete Time: 15:57 rt 02/22 14:01 Order name: Labs collected and sent; Complete Time: 15:57 rt 02/22 14:01 Order name: O2 Per Protocol; Complete Time: 16:28 rt 02/22 14:01 Order name: O2 Sat Monitoring; Complete Time: 16:28 rt EC:52 Rate is 79 beats/min. Rhythm is regular, Normal Sinus Rhythm with No ectopy. QRS Aspen rt is Normal. MT interval is normal. QRS interval is normal. QT interval is normal. No Q waves. T waves are Normal. No ST changes noted. Interpreted by me. Administered Medications: 16:41 Drug: Insulin Regular Human IVP 10 units IVP once {Co-Signature: mb9 (Heidy Clemente [address] RN).} Route: IVP; Site: right antecubital; 17:52 Follow up: Response: No adverse reaction cm10 16:42 Drug: Aspirin PO Chewable Tablet 324 mg PO once; 81 mg tablets x 4 Route: PO; cm10 17:30 Follow up: Response: No adverse reaction cm10 16:42 Drug: NS 0.9% IV 2000 ml IV at 1000 ml once; to be given as a bolus over 60 minutes cm10 Route: IV; Rate: 1000 ml; Site: right antecubital; 17:52 Follow up: Response: No adverse reaction; IV Status: Completed infusion; IV Intake: cm10 2000ml 16:42 Drug: Potassium PO Effervescent Tablet 50 mEq PO once; dissolve in 4 ounces of water or cm10 juice Route: PO; 17:30 Follow up: Response: No adverse reaction cm10 Disposition Summary: 02/23/24 18:32 Discharge Ordered Notes: Location: Home rt Condition: Stable rt Diagnosis - Chest pain, unspecified rt - Hyperglycemia, unspecified rt Followup: rt - With: Teddy Sahu MD - When: 2 - 3 days - Reason: Discharge Instructions: - Discharge Summary Sheet rt - Nonspecific Chest Pain, Adult rt - Hyperglycemia rt Forms: - Work release form rt - Medication Reconciliation Form rt - Antibiotic Education rt - Prescription Opioid Use rt - Patient Portal Instructions rt - Leadership Thank You Letter rt Prescriptions: - Metformin 500 mg Oral tablet - take 1 tablet ORAL route every 12 hours; 60 tablet; Refills: 0, Product rt Selection Permitted Signatures: Dispatcher [employer] Heidy An RN RN mb9 Vijay Muñoz MD MD rt Britney Dalton RN RN cm10 Heidy Clemente RN mb9 Corrections: (The following items were deleted from the chart) 14:01 14:01 BASIC METABOLIC PANEL+C.LAB.BRZ ordered. EDMS EDMS 14: 14:01 CBC+H.LAB.BRZ ordered. EDMS EDMS 14:01 14:01 HEPATIC FUNCTION+C.LAB.BRZ ordered. EDMS EDMS 14:01 14:01 Troponin High Sensitivity+C.LAB.BRZ ordered. EDMS EDMS 14:01 14:01 Chest Single View+RAD.RAD.BRZ ordered. EDMS EDMS
--- NOTE | 2024-02-23 18:33 | ER ---
Nurse's Notes [facility] Name: Chrissy Conway Age: 48 yrs Sex: Female : 1975 Arrival Date: 02/23/2024 Time: 13:51 Bed 2 Private MD: Diagnosis: Chest pain, unspecified;Hyperglycemia, unspecified Presentation: 02/22 13:59 Chief complaint: Patient states: Chest pressure that started yesterday, worse w/ ph activity, also reports SOB, denies N/V. Coronavirus screen: Vaccine status: Patient reports being unvaccinated. Ebola Screen: No symptoms or risks identified at this time. Initial Sepsis Screen: Does the patient meet any 2 criteria? No. Patient's initial sepsis screen is negative. Does the patient have a suspected source of infection? No. Patient's initial sepsis screen is negative. Risk Assessment: Do you want to hurt yourself or someone else? Patient reports no desire to harm self or others. Onset of symptoms was February 23, 2024. 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 - Infectious Disease History:: Denies. - Family history:: not pertinent. - Social history:: Smoking status: Patient denies any tobacco usage or history of. Screenin:42 [facility] ED Fall Risk Assessment (Adult) History of falling in the last 3 months, mb9 including since admission No falls in past 3 months (0 pts) Confusion or Disorientation No (0 pts) Intoxicated or Sedated No (0 pts) Impaired Gait No (0 pts) Mobility Assist Device Used No (0 pt) Altered Elimination No (0 pt) Score/Fall Risk Level 0 - 2 = Low Risk Oriented to surroundings, Maintained a safe environment, Educated pt \T\ family on fall prevention, incl call for assistance when getting out of bed. Abuse screen: Denies threats or abuse. Nutritional screening: No deficits noted. Tuberculosis screening: No symptoms or risk factors identified. Assessment: 16:50 General: Appears in no apparent distress. Behavior is calm, cooperative. Pain: Denies mb9 pain. Neuro: Rosenberg Agitation-Sedation Scale (RASS): 0 - Alert and Calm Level of Consciousness is awake, alert, obeys commands, Oriented to person, place, time, situation, Appropriate for age. Cardiovascular: Denies chest pain, Patient's skin is warm and dry. Rhythm is regular. Respiratory: Airway is patent Respiratory effort is even, unlabored, Respiratory pattern is regular, symmetrical. GI: No signs and/or symptoms were reported involving the gastrointestinal system. : No signs and/or symptoms were reported regarding the genitourinary system. EENT: No signs and/or symptoms were reported regarding the EENT system. Derm: Skin is pink, warm \T\ dry. Musculoskeletal: Range of motion: intact in all extremities. 18:00 Reassessment: Patient appears in no apparent distress at this time. No changes from cm10 previously documented assessment. Patient and/or family updated on plan of care and expected duration. Pain level reassessed. Patient is alert, oriented x 3, equal unlabored respirations, skin warm/dry/pink. 19:00 Reassessment: No changes from previously documented assessment. Patient and/or family mb9 updated on plan of care and expected duration. Pain level reassessed. Patient is alert, oriented x 3, equal unlabored respirations, skin warm/dry/pink. Vital Signs: 13:59 BP 126 / 83; Pulse 82; Resp 18; Temp 97.8; Pulse Ox 100% on R/A; Weight 79.38 kg; ph Height 5 ft. 5 in. ; 17:54 BP 121 / 85; Pulse 70; Resp 16; Pulse Ox 99% on R/A; mb9 18:00 BP 113 / 80; Pulse 70; Resp 14; Pulse Ox 100% ; cm10 13:59 Body Mass Index 29.12 (79.38 kg, 165.1 cm) ph ED Course: 13:55 Patient arrived in ED. mg5 13:57 Vijay Muñoz MD is Attending Physician. rt 14:21 Triage completed. ph 14:21 Arm band placed on Patient placed in waiting room, Patient notified of wait time. EKG ph completed in triage. Results shown to MD. 14:27 XRAY Chest (1 view) In Process Unspecified. EDMS 15:57 Basic Metabolic Panel Sent. bc6 15:57 CBC with Diff Sent. bc6 15:57 LFT's Sent. bc6 15:57 Troponin HS Sent. bc6 15:57 Initial lab(s) drawn, by me, sent to lab. Inserted saline lock: 20 gauge in right bc6 antecubital area, using aseptic technique. Blood collected. Flushed with 10 mL NS. 16:28 EKG done, by ED staff, reviewed by Vijay Muñoz MD. mb9 16:41 No provider procedures requiring assistance completed. mb9 16:42 Placed in gown. Bed in low position. Call light in reach. Side rails up X 1. Provided mb9 Education on: press call light if needing anything. Client placed on continuous cardiac and pulse oximetry monitoring. NIBP monitoring applied. security monitor on. 16:44 Britney Dalton, PEE is Primary Nurse. cm10 18:00 Glucose Sent. cm10 18:00 Troponin High Sensitivity Sent. cm10 18:00 Repeat lab(s) drawn. by me, sent to lab. cm10 18:32 Teddy Sahu MD is Referral Physician. rt 18:59 IV discontinued, intact, bleeding controlled, No redness/swelling at site. Pressure mb9 dressing applied. Administered Medications: 16:41 Drug: Insulin Regular Human IVP 10 units IVP once {Co-Signature: mb9 (Heidy Clemente Praveen Khan RN).} Route: IVP; Site: right antecubital; 17:52 Follow up: Response: No adverse reaction cm10 16:42 Drug: Aspirin PO Chewable Tablet 324 mg PO once; 81 mg tablets x 4 Route: PO; cm10 17:30 Follow up: Response: No adverse reaction cm10 16:42 Drug: NS 0.9% IV 2000 ml IV at 1000 ml once; to be given as a bolus over 60 minutes cm10 Route: IV; Rate: 1000 ml; Site: right antecubital; 17:52 Follow up: Response: No adverse reaction; IV Status: Completed infusion; IV Intake: cm10 2000ml 16:42 Drug: Potassium PO Effervescent Tablet 50 mEq PO once; dissolve in 4 ounces of water or cm10 juice Route: PO; 17:30 Follow up: Response: No adverse reaction cm10 Medication: 16:42 VIS not applicable for this client. mb9 Intake: 17:52 IV: 2000ml; Total: 2000ml. cm10 Outcome: 18:32 Discharge ordered by . rt 19:00 Discharged to home ambulatory, rosa 19:00 Condition: stable 19:00 Discharge instructions given to patient, Instructed on discharge instructions, follow up and referral plans. Demonstrated understanding of instructions, follow-up care, medications, Prescriptions given X 1, 19:00 Patient left the ED. mb9 Signatures: Dispatcher [employer] EDElsa Moise, RN RN ph Bryn, Heidy Khan, RN RN mb9 Vijay Muñoz MD MD rt Chelsi Reid bc6 Britney Dalton RN RN cm10 Edwige Tolentino mg5 Heidy Clemente RN mb9
[2024-02-23 19:16] VITALS: TEMP 97.8
[2024-02-23 19:28] VITALS: BP 113/80; O2SAT 100
== END 2024-02-23 19:00 | disposition home or self-care (01) ==
LOC: ER 13:51
DX: R07.89 Other chest pain (principal); E11.65 Type 2 diabetes mellitus with hyperglycemia
CPT/HCPCS: 36415; 71045; 80048; 80076; 82947; 84484; 85025; 93005; 96361; 96374; 99285; J7030

== ENCOUNTER 2024-09-02 19:09 | Emergency (ER) | payer SELFPAY ==
--- OUTSIDE RECORDS SUMMARY | 2024-09-02 19:12 | XMS REPORT | Continuity of Care Document ---
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
[2024-09-02] MEDS ORDERED: NA CHLORIDE 0.9% 1,000 ML ONE (22:56)
[2024-09-02] MEDS ORDERED: LORazepam 2 MG/ML VIAL ONE (22:56)
[2024-09-02 23:21] LABS: Absolute Basophils 0.1 K/uL (0-0.5); Absolute Lymphocytes (CBC) 2.1 K/uL (0.7-4.9); Absolute Monocytes 1.3 K/uL (0.1-1.3); Absolute Neutrophil 8.3 K/uL (1.8-8.0); Basophils % 0.4 % (0-1.3); Eosinophils % 0.3 % (0-4.4); Hematocrit 39.1 % (36.0-45.0); Hemoglobin 14.1 g/dL (12.0-15.0); Lymphocytes % 17.5 % (15.3-44.8); MCH 30.3 pg (27.0-35.0); MCV 84.1 fL (80-100); Monocytes % 11.5 % (3.3-12.3); Neutrophils % 70.3 % (41.7-73.7); Nucleated Red Blood Cells % 0.1 % (0-0); Platelets 312 thou/uL (152-406); RBC Red Blood Cell Count 4.66 M/uL (3.86-4.86); Red Cell Distribution Width 12.9 % (12.1-15.2)
[2024-09-02 23:25] LABS: PT Prothrombin Time 11.3 SECONDS (10-13.0); PTT, Activated Partial Thromb 20.8 SECONDS (27.2-37.4); Protime INR 0.99
[2024-09-02 23:29] LABS: Barbiturates NEGATIVE (NEGATIVE); Benzodiazepines NEGATIVE (NEGATIVE); Cocaine NEGATIVE (NEGATIVE); METHAMPHETAM POSITIVE (NEGATIVE); Methadone NEGATIVE (NEGATIVE); Opiates NEGATIVE (NEGATIVE); Phencyclidine NEGATIVE (NEGATIVE); THC Cannibis POSITIVE (NEGATIVE)
[2024-09-02 23:31] LABS: Specific Gravity > 1.030 (1.005-1.030); Urine Bacteria <20 /HPF (<20); Urine Bilirubin NEGATIVE (Negative); Urine Blood 1+ (Negative); Urine Clarity Extremely Turbid (Clear); Urine Color Yellow (Yellow); Urine Culture Reflex Order NOT NEEDED; Urine Glucose 4+ (Over) (Negative); Urine Ketones 1+ (Negative); Urine Microscopic Reflex YN ORDER UMIC; Urine Mucus Slight /HPF (None Seen); Urine Nitrite NEGATIVE (Negative); Urine Protein 1+ (Negative); Urine RBC <5 /HPF (None Seen); Urine Urobilinogen Normal (Normal); Urine pH 5.5 (5.0-7.0)
[2024-09-02 23:40] LABS: ALT/SGPT 53 U/L (13-56); Albumin 3.5 g/dL (3.4-5.0); Albumin/Globulin Ratio 0.8 (1.1-1.8); Alkaline Phosphatase 79 U/L (45-117); Anion Gap 11.9 mEq/L (5.0-15.0); BUN Blood Urea Nitrogen 25 mg/dL (7-18); Bicarbonate 24 mEq/L (21-32); Bilirubin Direct 0.4 mg/dL (0-0.2); Bilirubin Indirect, Calculated 1.2 mg/dL (0.2-0.8); Bilirubin Total 1.6 mg/dL (0.2-1.0); Creatine Phosphokinase 876 U/L (26-192); Globulin 4.2 g/dL (2.3-3.5); Glomerular Filtration Rate 36 ml/min (=/>90); Glucose Level 355 mg/dL (74-106); Protein, Total 7.7 g/dL (6.4-8.2); Sodium Level 129 mEq/L (136-145)
[2024-09-02 23:51] LABS: AST/SGOT 41 U/L (15-37); Potassium 2.9 mEq/L (3.5-5.1)
[2024-09-02] MEDS ORDERED: WATER FOR INJ,STERILE 10 ML ONE (23:51)
[2024-09-02] MEDS ORDERED: ZIPRASIDONE MESYLA 20 MG/VIAL IM ONE (23:51)
[2024-09-03] MEDS ORDERED: KCL 20 MEQ/100 mL IVPB 200 ML IV ONE (01:17)
[2024-09-03] MEDS ORDERED: NA CHLORIDE 0.9% 1,000 ML ONE (02:52)
--- NOTE | 2024-09-03 06:41 | RAD REPORT ---
EXAMINATION: Head Brain Wo Cont CLINICAL INDICATION: Female, 48 years old.ams TECHNIQUE: Axial CT images from the skull base to the vertex without intravenous contrast. Coronal an d sagittal reformatted images were created from the data set. One or more of the following dose reduction techniques were used: Automated exposure control, adjustment of the mA and/or kV according to patient size, and/or iterative reconstruction. Unless otherwise specified, incidental findings do not require dedicated imaging follow-up. [id number]. COMPARISON: No prior exam. FINDINGS: INTRACRANIAL: No acute intracranial hemorrhage. No hydrocephalus. No mass effect or midline shift. No significant white matter disease. VASCULATURE: No visualized abnormalities in the arteries or dural venous sinuses. SCALP/SKULL: No calvarial fracture identified. No acute soft tissue abnormality. SINUSES: The visualized paranasal sinuses are mostly clear. No significant mastoid fluid. IMPRESSION: No acute intracranial abnormality.
--- NOTE | 2024-09-03 06:45 | EDPHYS ---
Physician Documentation [facility] Name: Chrissy Conway Age: 48 yrs Sex: Female : 1975 Arrival Date: 09/02/2024 Time: 18:57 Bed 19 Private MD: ED Physician Vijay Muñoz HPI: 09/02 19:55 This 48 yrs old Female presents to ER via EMS with complaints of Drug Abuse. rt 19:55 Patient with history of methamphetamine abuse presents to the ED after using meth for rt the past, states that she has not slept during that time. Reports hallucinations,, being agitated. Denies of acute, symptoms are moderate in severity no other aggravating relieving factors.. 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 - Infectious Disease History:: Denies. - Social history:: Patient uses street drugs, Methamphetamine (Meth) Smoking status: Reported history of juuling and/or vaping. - Family history:: not pertinent. ROS: 19:55 Constitutional: Negative for fever, chills, and weight loss, Cardiovascular: Negative rt for chest pain, palpitations, and edema, Respiratory: Negative for shortness of breath, cough, wheezing, and pleuritic chest pain, Abdomen/GI: Negative for abdominal pain, nausea, vomiting, diarrhea, and constipation, MS/Extremity: Negative for injury and deformity, Skin: Negative for injury, rash, and discoloration, Exam: 19:55 Head/Face: Normocephalic, atraumatic. Chest/axilla: Normal chest wall appearance and rt motion. Nontender with no deformity. No lesions are appreciated. Cardiovascular: Regular rate and rhythm with a normal S1 and S2. No gallops, murmurs, or rubs. Normal PMI, no JVD. No pulse deficits. Respiratory: Lungs have equal breath sounds bilaterally, clear to auscultation and percussion. No rales, rhonchi or wheezes noted. No increased work of breathing, no retractions or nasal flaring. Abdomen/GI: Soft, non-tender, with normal bowel sounds. No distension or tympany. No guarding or rebound. No evidence of tenderness throughout. Skin: Warm, dry with normal turgor. Normal color with no rashes, no lesions, and no evidence of cellulitis. MS/ Extremity: Pulses equal, no cyanosis. Neurovascular intact. Full, normal range of motion. 19:55 Constitutional: The patient appears Hyperactive 19:57 ECG was reviewed by the Attending Physician. rt Vital Signs: 19:38 BP 110 / 68; Pulse 110; Resp 18; Temp 98.3; Pulse Ox 98.3% on R/A; Weight 74.84 kg; al5 Height 5 ft. 5 in. ; 23:00 BP 131 / 82; Pulse 87; Resp 16; Pulse Ox 100% on R/A; al5 09/03 00:16 BP 136 / 82; Pulse 84; Resp 18; Pulse Ox 98% on R/A; al5 00:30 BP 105 / 60; Pulse 75; Resp 16; Pulse Ox 98% ; al5 01:00 BP 116 / 65; Pulse 75; Resp 15; Pulse Ox 99% ; al5 01:30 BP 139 / 80; Pulse 77; Resp 16; Pulse Ox 97% ; al5 02:00 BP 130 / 76; Pulse 81; Resp 14; Pulse Ox 100% ; al5 02:30 BP 128 / 80; Pulse 79; Resp 15; Pulse Ox 97% ; al5 03:00 BP 131 / 72; Pulse 75; Resp 16; Pulse Ox 97% ; al5 04:30 BP 103 / 64; Pulse 75; Resp 16; Pulse Ox 99% ; al5 05:00 BP 126 / 78; Pulse 74; Resp 15; Pulse Ox 96% ; al5 06:38 BP 95 / 79; Pulse 65; Resp 16; Pulse Ox 97% on R/A; al5 06:53 BP 117 / 73; Pulse 67; Resp 16; Pulse Ox 98% ; al5 11:00 BP 121 / 67; Pulse 73; Resp 16; Pulse Ox 98% ; bp 09/02 19:38 Body Mass Index 27.46 (74.84 kg, 165.1 cm) al5 MDM: 09/02 19:47 Medical Screening Exam initiated rt 09/03 06:47 Differential Diagnosis Methamphetamine abuse, electrolyte disturbance. Data reviewed: rt vital signs, nurses notes, lab test result(s), EKG, radiologic studies. Consideration of Admission/Observation Escalation of care including admission/observation considered. Patient had returned to baseline neurologic status, appears significantly improved. Hypokalemia was treated. Patient was observed for several hours in the emergency department, not worsening of condition. No indications for admission at this time.. I considered the following discharge prescriptions or medication management in the emergency department Medications were administered in the Emergency Department. See MAR. Independent interpretation of the following test(s) in the Emergency Department CT Scan: My interpretation is No intracranial hemorrhage seen on my interpretation of CT scan images. Care significantly affected by the following chronic conditions: Diabetes. Care significantly affected by the following Social Determinants of Health: Inadequate housing, Misuse of alcohol and/or drugs. Counseling: I had a detailed discussion with the patient and/or guardian regarding the historical points, exam findings, and any diagnostic results supporting the discharge/admit diagnosis, lab results, radiology results, the need for outpatient follow up. Response to treatment: the patient's symptoms have markedly improved after treatment. 09/02 19:48 Order name: Acetaminophen; Complete Time: 23:57 rt 09/02 19:48 Order name: Basic Metabolic Panel; Complete Time: 23:57 09/02 19:48 Order name: CBC with Diff; Complete Time: 23:41 rt 09/02 19:48 Order name: ETOH Level; Complete Time: 23:42 09/02 19:48 Order name: Hepatic Function; Complete Time: 23:57 09/02 19:48 Order name: PT-INR; Complete Time: 23:42 09/02 19:48 Order name: Ptt, Activated; Complete Time: 23:41 09/02 19:48 Order name: Salicylate; Complete Time: 23:41 09/02 19:48 Order name: Urinalysis w/ reflexes; Complete Time: 23:41 09/02 19:48 Order name: Urine Drug Screen; Complete Time: 23:42 rt 09/02 19:48 Order name: CPK; Complete Time: 23:57 09/03 06:01 Order name: CT Head Brain wo Cont; Complete Time: 06:44 09/02 19:48 Order name: EKG - Nurse/Tech; Complete Time: 19:53 rt 09/02 19:48 Order name: IV Saline Lock; Complete Time: 19:53 rt 09/02 19:48 Order name: Labs collected and sent; Complete Time: 19:53 rt 09/02 19:48 Order name: Suicide Screening ([place]); Complete Time: 22:34 rt EC/27 19:57 Rate is 78 beats/min. Rhythm is regular, Normal Sinus Rhythm with No ectopy. QRS [place] rt is Normal. [place] interval is normal. QRS interval is normal. QT interval is normal. No Q waves. T waves are Normal. No ST changes noted. Interpreted by me. Administered Medications: 09/03 06:54 Discontinued: ns 0.9% 1000 ml IV at 1 bolus Per protocol; to be given as a bolus over al5 60 minutes 09/02 23:03 Drug: NS 0.9% IV 1000 ml IV at 1000 ml once; to be given as a bolus over 60 minutes al5 Route: IV; Rate: 1000 ml; Site: left antecubital; 23:50 Follow up: IV Pause: 09/02/2024 23:50; IV Pause Reason: Limited IV access/Medication al5 interaction 09/03 01:21 Follow up: IV SiteChange: right antecubital; IV SiteChange Reason: Patient removed al5 06:54 Follow up: Response: No adverse reaction; IV Status: Completed infusion; IV Intake: al5 1000ml 09/02 23:04 Drug: Ativan IVP 2 mg IVP once Route: IVP; Site: left antecubital; al5 09/03 00:12 Follow up: Response: No adverse reaction 5 09/02 23:58 Drug: Geodon IM 40 mg IM once Route: IM; Site: left gluteus; me1 09/03 01:22 Follow up: Response: No adverse reaction; RASS: Light sedation (-2) al5 01:21 Drug: Potassium Chloride IV 40 mEq IV at calculated rate once; administer over 4 hours al5 Route: IV; Rate: calculated rate; Site: right antecubital; 06:54 Follow up: Response: No adverse reaction; IV Status: Completed infusion; IV Intake: al5 200ml 03:00 Drug: NS 0.9% IV 1000 ml IV at 1 bolus Per protocol; to be given as a bolus over 60 al5 minutes Route: IV; Rate: 1 bolus; Site: right antecubital; 06:54 Follow up: Response: No adverse reaction; IV Status: Order to discontinue infusion; IV al5 Intake: 600ml Disposition Summary: 09/03/24 06:44 Discharge Ordered Notes: Location: Home rt Problem: new rt Symptoms: have improved rt Condition: Stable rt Diagnosis - Methamphetamine abuse rt Followup: rt - With: Private Physician - When: 2 - 3 days - Reason: Discharge Instructions: - Discharge Summary Sheet rt - Methamphetamines Use Disorder rt Forms: - Medication Reconciliation Form rt - Antibiotic Education rt - Prescription Opioid Use rt - Patient Portal Instructions rt - Leadership Thank You Letter rt Signatures: Dispatcher [employer] Vijay Campos MD MD rt Denise Merritt RN RN me1 Shawanda Saldana RN RN al5 Corrections: (The following items were deleted from the chart) 09/02 19:49 19:49 ACETAMINOPHEN+C.LAB.BRZ ordered. EDMS EDMS 19:49 19:49 BASIC METABOLIC PANEL+C.LAB.BRZ ordered. EDMS EDMS 19:49 19:49 CBC+H.LAB.BRZ ordered. EDMS EDMS 19:49 19:49 ETHANOL+C.LAB.BRZ ordered. EDMS EDMS 19:49 19:49 HEPATIC FUNCTION+C.LAB.BRZ ordered. EDMS EDMS 19:49 19:49 PROTIME (+INR)+COAG.LAB.BRZ ordered. EDMS EDMS 19:49 19:49 PTT, ACTIVATED+COAG.LAB.BRZ ordered. EDMS EDMS 19:49 19:49 SALICYLATE+C.LAB.BRZ ordered. EDMS EDMS 19:49 19:49 Urinalysis+U.LAB.BRZ ordered. EDMS EDMS 19:49 19:49 URINE DRUG SCREEN+UC.LAB.BRZ ordered. EDMS EDMS 19:49 19:49 CREATINE PHOSPHOKINASE+C.LAB.BRZ ordered. EDMS EDMS
--- NOTE | 2024-09-03 06:45 | ER ---
Nurse's Notes [facility] Name: Chrissy Conway Age: 48 yrs Sex: Female : 1975 Arrival Date: 09/02/2024 Time: 18:57 Bed 19 Private MD: Diagnosis: Methamphetamine abuse Presentation: 09/02 19:38 Chief complaint: Patient states: ingested methamphetamines today, hx of meth abuse. al5 states she has not slept in days, is experiencing audio and visual hallucinations and anxiety. is wanting to get help from a drug rehab. Coronavirus screen: At this time, the client does not indicate any symptoms associated with coronavirus-19. Ebola Screen: No symptoms or risks identified at this time. Initial Sepsis Screen: Does the patient meet any 2 criteria? HR > 90 bpm. No. Patient's initial sepsis screen is negative. Does the patient have a suspected source of infection? No. Patient's initial sepsis screen is negative. Risk Assessment: Do you want to hurt yourself or someone else? Patient reports no desire to harm self or others. Onset of symptoms was September 02, 2024. 19:38 Method Of Arrival: EMS: [facility] al5 19:38 Acuity: PAULINO 3 al5 19:40 Care prior to arrival: Medication(s) given: Normal saline infusion, 1000 mL, IV al5 initiated. 20 GA, in the left antecubital area. Triage Assessment: 19:41 General: Appears in no apparent distress. comfortable, Behavior is calm, cooperative. al5 General: experiencing audio and visual hallucinations. EENT: No signs and/or symptoms were reported regarding the EENT system. Neuro: Level of Consciousness is awake, alert, obeys commands, Oriented to person, place, time, situation. Cardiovascular: Capillary refill < 3 seconds Patient's skin is warm and dry. Respiratory: Airway is patent Respiratory effort is even, unlabored, Respiratory pattern is regular, symmetrical. GI: No signs and/or symptoms were reported involving the gastrointestinal system. : No signs and/or symptoms were reported regarding the genitourinary system. Derm: Skin is intact, is healthy with good turgor, Skin is pink, warm \\T\\ dry. normal. Musculoskeletal: No signs and/or symptoms reported regarding the musculoskeletal system. 19:45 Pain: Denies pain. al5 [employer]: 19:44 LMP N/A - Post-menopause, Not al5 Historical: - Allergies: 19:41 Codeine; al5 19:41 PENICILLINS; al5 - PMHx: 19:41 Anxiety; Depression; diabetes mellitus; drug abuse (tubal ); al5 - PSHx: 19:41 tubal ; al5 - Immunization history:: Adult Immunizations up to date. - Infectious Disease History:: Denies. - Social history:: Patient uses street drugs, Methamphetamine (Meth) Smoking status: Reported history of juuling and/or vaping. - Family history:: not pertinent. Screenin:[facility] ED Fall Risk Assessment (Adult) History of falling in the last 3 months, al5 including since admission No falls in past 3 months (0 pts) Confusion or Disorientation No (0 pts) Intoxicated or Sedated No (0 pts) Impaired Gait No (0 pts) Mobility Assist Device Used No (0 pt) Altered Elimination No (0 pt) Score/Fall Risk Level 0 - 2 = Low Risk Maintained a safe environment. Abuse screen: Denies threats or abuse. Denies injuries from another. Nutritional screening: No deficits noted. Tuberculosis screening: No symptoms or risk factors identified. Assessment: 19:43 Reassessment: see triage assessment. al5 22:33 Reassessment: Patient appears in no apparent distress at this time. No changes from al5 previously documented assessment. Patient and/or family updated on plan of care and expected duration. Pain level reassessed. Patient is alert, oriented x 3, equal unlabored respirations, skin warm/dry/pink. assumed care of patient at this time Patient states feeling better. 23:49 Reassessment: patient laying on the floor in the corner, screaming at inanimate al5 objects. patient self removed IV. patient unable to be calmed down, code lara called. charge nurse and AOC at bedside. patient brought back to the bed. switched patient room and sitter at door way. medications ordered at this time. 09/03 00:34 Reassessment: Patient appears in no apparent distress at this time. Patient and/or al5 family updated on plan of care and expected duration. Pain level reassessed. patient resting comfortably at this time. 02:00 Reassessment: Patient appears in no apparent distress at this time. No changes from al5 previously documented assessment. Patient and/or family updated on plan of care and expected duration. Pain level reassessed. Patient is alert, oriented x 3, equal unlabored respirations, skin warm/dry/pink. 03:01 Reassessment: Patient appears in no apparent distress at this time. No changes from al5 previously documented assessment. Patient and/or family updated on plan of care and expected duration. Pain level reassessed. Patient is alert, oriented x 3, equal unlabored respirations, skin warm/dry/pink. 04:44 Reassessment: Patient appears in no apparent distress at this time. No changes from al5 previously documented assessment. Patient and/or family updated on plan of care and expected duration. Pain level reassessed. 05:45 Reassessment: Patient appears in no apparent distress at this time. No changes from al5 previously documented assessment. Patient and/or family updated on plan of care and expected duration. Pain level reassessed. 06:37 Reassessment: Patient appears in no apparent distress at this time. No changes from al5 previously documented assessment. Patient and/or family updated on plan of care and expected duration. Pain level reassessed. Patient is alert, oriented x 3, equal unlabored respirations, skin warm/dry/pink. 07:00 Reassessment: RECD REPORT FROM DIALLO GLASGOW. PT TBDC PENDING SOBRIETY. bp 11:00 Reassessment: PT NOW AWAKE, AO4, STEADY GAIT. bp Overdose: 09/02 19:44 [place] Suicide Severity Screening: "In the past month, have you wished you were al5 or wished you could go to sleep and not wake up?" Patient responds "no." "In the past month, have you actually had any thoughts of killing yourself?" Patient responds "no." "In your lifetime, have you ever done anything, started to do anything, or prepared to do anything to end your life?" Patient responds "no.". Vital Signs: 19:38 BP 110 / 68; Pulse 110; Resp 18; Temp 98.3; Pulse Ox 98.3% on R/A; Weight 74.84 kg; al5 Height 5 ft. 5 in. ; 23:00 BP 131 / 82; Pulse 87; Resp 16; Pulse Ox 100% on R/A; al5 09/03 00:16 BP 136 / 82; Pulse 84; Resp 18; Pulse Ox 98% on R/A; al5 00:30 BP 105 / 60; Pulse 75; Resp 16; Pulse Ox 98% ; al5 01:00 BP 116 / 65; Pulse 75; Resp 15; Pulse Ox 99% ; al5 01:30 BP 139 / 80; Pulse 77; Resp 16; Pulse Ox 97% ; al5 02:00 BP 130 / 76; Pulse 81; Resp 14; Pulse Ox 100% ; al5 02:30 BP 128 / 80; Pulse 79; Resp 15; Pulse Ox 97% ; al5 03:00 BP 131 / 72; Pulse 75; Resp 16; Pulse Ox 97% ; al5 04:30 BP 103 / 64; Pulse 75; Resp 16; Pulse Ox 99% ; al5 05:00 BP 126 / 78; Pulse 74; Resp 15; Pulse Ox 96% ; al5 06:38 BP 95 / 79; Pulse 65; Resp 16; Pulse Ox 97% on R/A; al5 06:53 BP 117 / 73; Pulse 67; Resp 16; Pulse Ox 98% ; al5 11:00 BP 121 / 67; Pulse 73; Resp 16; Pulse Ox 98% ; bp 09/02 19:38 Body Mass Index 27.46 (74.84 kg, 165.1 cm) al5 ED Course: 09/02 19:22 Patient arrived in ED. gm2 19:23 Vijay Muñoz MD is Attending Physician. rt 19:40 Triage completed. al5 19:42 Arm band placed on right wrist. Patient placed in waiting room, in view of staff al5 members, on pulse oximetry, Patient notified of wait time. 19:43 Patient has correct armband on for positive identification. Provided Education on: al5 notification of wait time. 19:43 No provider procedures requiring assistance completed. al5 19:53 Maintain EMS IV. Dressing intact. Site clean \\T\\ dry. Gauge \\T\\ site: 20G LAC. al 5 22:33 Diallo Saldana RN is Primary Nurse. al5 09/03 06:38 CT Head Brain wo Cont In Process Unspecified. EDMS 07:04 Primary Nurse role handed off by Diallo Saldana RN bd 07:06 Que Aragon, PEE is Primary Nurse. bp 11:01 IV discontinued, intact, bleeding controlled, No redness/swelling at site. Pressure bp dressing applied. Administered Medications: 06:54 Discontinued: ns 0.9% 1000 ml IV at 1 bolus Per protocol; to be given as a bolus over al5 60 minutes 09/02 23:03 Drug: NS 0.9% IV 1000 ml IV at 1000 ml once; to be given as a bolus over 60 minutes al5 Route: IV; Rate: 1000 ml; Site: left antecubital; 23:50 Follow up: IV Pause: 09/02/2024 23:50; IV Pause Reason: Limited IV access/Medication al5 interaction 09/03 01:21 Follow up: IV SiteChange: right antecubital; IV SiteChange Reason: Patient removed al5 06:54 Follow up: Response: No adverse reaction; IV Status: Completed infusion; IV Intake: al5 1000ml 09/02 23:04 Drug: Ativan IVP 2 mg IVP once Route: IVP; Site: left antecubital; al5 09/03 00:12 Follow up: Response: No adverse reaction al5 09/02 23:58 Drug: Geodon IM 40 mg IM once Route: IM; Site: left gluteus; me1 09/03 01:22 Follow up: Response: No adverse reaction; RASS: Light sedation (-2) al5 01:21 Drug: Potassium Chloride IV 40 mEq IV at calculated rate once; administer over 4 hours al5 Route: IV; Rate: calculated rate; Site: right antecubital; 06:54 Follow up: Response: No adverse reaction; IV Status: Completed infusion; IV Intake: al5 200ml 03:00 Drug: NS 0.9% IV 1000 ml IV at 1 bolus Per protocol; to be given as a bolus over 60 al5 minutes Route: IV; Rate: 1 bolus; Site: right antecubital; 06:54 Follow up: Response: No adverse reaction; IV Status: Order to discontinue infusion; IV al5 Intake: 600ml Medication: 09/02 19:43 VIS not applicable for this client. al5 Intake: 09/03 06:54 IV: 1000ml; Total: 1000ml. al5 06:54 IV: 600ml; Total: 1600ml. al5 06:54 IV: 200ml; Total: 1800ml. al5 Outcome: 06:44 Discharge ordered by . rt 11:01 Discharged to home ambulatory, bp 11:01 Condition: stable 11:01 Discharge instructions given to patient, Instructed on discharge instructions, follow up and referral plans. Demonstrated understanding of instructions, follow-up care, 11:02 Patient left the ED. bp Signatures: Dispatcher [employer] EDMS Deric Elvira Que Glover RN RN bp Vijay Muñoz MD MD rt Denise Merritt RN RN me1 Samantha Ybarra gm2 Diallo Saldana RN RN al5 Corrections: (The following items were deleted from the chart) 09/02 19:45 19:38 Chief complaint: Patient states: ingested methamphetamines today, hx of meth al5 abuse. states she has not slept in days, is experiencing audio and visual hallucinations. is wanting to get help from a drug rehab al5 09/03 05:45 09/02 23:49 Reassessment: patient laying on the floor in the corner, screaming at al5 inanimate objects. patient self removed IV. patient unable to be calmed down, code lara called. charge nurse and AOC at bedside. patient brought back to the bed. switched patient room and sitter at door way. medications ordered at this time al5
--- NOTE | 2024-09-03 12:08 | EKG ---
Test Date: 2024-09-02 Test Time: 19:51:30 Biology Faculty Member: RENATA MEASUREMENT RESULTS: Intervals: Rate: 78 UT: 144 QRSD: 82 QT: 428 QTc: 487 [place]: P: 71 UT: 144 QRS: 50 T: 62 INTERPRETIVE STATEMENTS: Normal sinus rhythm Prolonged QT Abnormal ECG Compared to ECG 02/23/2024 14:06:50 Prolonged QT interval now present Electronically Signed On 09-03-24 12:06:32 CDT by Bautista Miranda
[2024-09-04 12:49] VITALS: TEMP 98.3
[2024-09-04 13:10] VITALS: O2SAT 98
[2024-09-04 13:11] VITALS: BP 121/67
== END 2024-09-03 11:02 | disposition home or self-care (01) ==
LOC: ER 19:09
DX: F15.10 Other stimulant abuse, uncomplicated (principal)
CPT/HCPCS: 36415; 70450; 80048; 80076; 80143; 80179; 80307; 81001; 82077; 82550; 85025; 85610; 85730; 93005; 96361; 96365; 96366; 96372; 96375; 99284; J3480; J3486; J7030